=== PATIENT | female | born 1960 | race Caucasian/White ===

== ENCOUNTER → 2016-08-02 | Outpatient (CLI) | payer BC ==
[~2016-08-02] MED LIST: IOPAMIDOL (ISOVUE-370) 150 ML BTL IV ONE
== END ==
LOC: FIMAGING 07:30
PROVIDERS: ATTEND Internal Medicine Cardiovascular Disease
DX: I71.2 Thoracic aortic aneurysm, without rupture (principal)
CPT/HCPCS: Q9967

== ENCOUNTER → 2016-08-28 | Outpatient (CLI) | payer BC | LOC: FIMAGING 07:54 | DX: Z12.31 Encounter for screening mammogram for malignant neoplasm of breast (principal) | CPT/HCPCS: G0202 ==

== ENCOUNTER → 2017-08-29 | Outpatient (CLI) | payer BC | LOC: FIMAGING 08:16 | PROVIDERS: ATTEND Internal Medicine | DX: Z12.31 Encounter for screening mammogram for malignant neoplasm of breast (principal) ==

== ENCOUNTER 2018-05-05 08:20 | Emergency (ER) | payer BC, OTHER ==
[2018-05-05] MEDS ORDERED: ASPIRIN 81 MG CHEWABLE TAB PO ONE (08:39)
[2018-05-05] MEDS ORDERED: MECLIZINE HCL 25 MG TAB PO ONE (08:44)
--- NOTE | 2018-05-05 08:52 | EDPHY ---
H & P Stated Complaint: dizziness since Saturday night , chest tight for week. Time Seen by Provider: 05/05/18 08:29 HPI/ROS: Chief Complaint: Dizziness HPI: 57-year-old woman with a history of a porcine heart valve replacement is presenting complaining of dizziness intermittently for the last 2 days. Patient states this started Saturday night when she rolled on to her right side in bed. The room was spinning at that point. In then it went away after a few minutes. It again occurred later that night when she rolled over. Yesterday had some intermittent dizziness while standing or changing position. Again last night noted worsening dizziness when she would turn her head to the side her move around. Did feel some nausea but no vomiting. Patient also reports some intermittent mild right-sided chest tightness which is nonexertional for the last week. Does not have a history of coronary artery disease. No shortness of breath. No palpitations or sensation that her heart is racing. ROS: 10 systems were reviewed and were negative except those elements noted in the HPI. PMH: Porcine heart valve replacement Social History: No smoking, no alcohol, no recreational drug use Family History: non-contributory Physical Exam: Gen: Awake, Alert, No Distress HEENT: Nose: no rhinorrhea Eyes: PERRLA, EOMI, horizontal nystagmus with rightward gaze Mouth: Moist mucosa Neck: Supple, no JVD Chest: nontender, lungs clear to auscultation Heart: S1, S2 normal, no murmur Abd: Soft, non-tender, no guarding Back: no CVA tenderness, no midline tenderness Ext: no edema, non-tender Skin: no rash Neuro: CN II-XII intact, Sensation grossly intact, Strength 5/5 in bilateral upper and lower extremities Patient has a positive Mayela-Hallpike maneuver bilateral. - Personal History Current Tetanus Diphtheria and Acellular Pertussis (TDAP): Unsure - Medical/Surgical History Hx Cardiac Disease: Yes Hx Renal Disease: No Hx Cirrhosis: No Hx Alcoholism: No Hx HIV/AIDS: No Hx Splenectomy or Spleen Trauma: No Other PMH: hysterectomy. Aortic valve 2006 nm. 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 - Social History Smoking Status: Never smoked Constitutional: Initial Vital Signs Temperature (C) 36.7 C 05/05/18 08:26 Heart Rate 66 05/05/18 08:26 Respiratory Rate 16 05/05/18 08:26 Blood Pressure 150/88 H 05/05/18 08:26 O2 Sat (%) 98 05/05/18 08:26 O2 Delivery Mode Room Air Allergies/Adverse Reactions: codeine [Codeine] Allergy (Verified 05/05/18 08:33) Sulfa (Sulfonamide Antibiotics) Allergy (Verified 05/05/18 08:33) Home Medications: Medication Instructions Recorded Aspirin 81mg (*) 05/05/18 BIOTIN 05/05/18 Meclizine HCl [Meclizine HCl 25 mg 25 mg PO Q6 PRN #25 tab 05/05/18 (RX,OTC)] Probiotic 05/05/18 Medical Decision Making - Diagnostics EKG Interpretation: ECG time 8:33 a.m., sinus rhythm with a rate of 61, normal axis, normal intervals, no acute ST or T-wave changes. Impression: Normal ECG. ED Course/Re-evaluation: Troponin is 0. Patient is improved after meclizine. Symptoms consistent with benign positional vertigo. There are no red flags for acute central neurologic process. Plan will be for discharge to home, follow with primary care physician. Supportive treatment with meclizine. Return for any concerns. - Data Points Laboratory Results: 05/05/18 09:01 POC Troponin I 0.00 ng/mL ng/mL (0.00-0.08) Medications Given: Discontinued Medications Meclizine HCl (Meclizine Hcl) 25 mg PO EDNOW ONE Stop: 05/05/18 08:45 Last Admin: 05/05/18 08:55 Dose: 25 mg Point of Care Test Results: Chemistry 05/05/18 09:01 POC Troponin I 0.00 ng/mL ng/mL (0.00-0.08) Departure - Departure Disposition: Home, Routine, Self-Care Clinical Impression: Benign positional vertigo Condition: Good Instructions: Benign Paroxysmal Positional Vertigo (ED), Dizziness (ED) Additional Instructions: May take meclizine as needed for dizziness. Follow up with primary care physician in 2-3 days if symptoms are not improving. Return to the emergency department for worsening chest pain, shortness of breath , uncontrolled dizziness, uncontrolled vomiting, or any other concerns. Referrals: Monica Shaw MD [Primary Care Provider] - As per Instructions Prescriptions: Meclizine HCl [Meclizine HCl 25 mg (RX,OTC)] 25 mg PO Q6 PRN #25 tab PRN Reason: Dizziness
[2018-05-05 09:42] VITALS: BP 137/77
--- NOTE | 2018-05-05 10:37 | CPEKG ---
Test Reason : OPEN Blood Pressure : / mmHG Vent. Rate : 061 BPM Atrial Rate : 061 BPM P-R Int : 143 ms QRS Dur : 086 ms QT Int : 440 ms P-R-T Axes : 078 064 050 degrees QTc Int : 444 ms Sinus rhythm Confirmed by Tom Tee ([id number]) on 05/05/2018 10:36:59 AM Referred By: Confirmed By:Tom Tee
== END 2018-05-05 09:43 | disposition home or self-care (01) ==
LOC: CED 08:20
DX: H81.10 Benign paroxysmal vertigo, unspecified ear (principal); Z95.4 Presence of other heart-valve replacement
CPT/HCPCS: 84484-PO